=== PATIENT | male | born 1955 | race Caucasian/White ===

== ENCOUNTER 2017-12-30 23:42 | Emergency (ER) | payer OTHER ==
[2017-12-31 00:50] LABS: Absolute Monocytes 0.7 K/uL (0.1-1.3); Absolute Neutrophil 5.8 K/uL (1.8-8.0); Basophils % 0.9 % (0-1.3); Eosinophils % 1.2 % (0-4.4); Hematocrit 44.8 % (39.6-49.0); Lymphocytes % 22.9 % (15.3-44.8); MCH 30.2 pg (27.0-35.0); MCV 89.4 fL (80-100); MPV 8.4 fL (7.6-11.3); Monocytes % 8.4 % (3.3-12.3); RBC Red Blood Cell Count 5.01 M/uL (4.33-5.43)
[2017-12-31 00:54] LABS: Potassium 4.1 mEq/L (3.6-5.0)
[2017-12-31 01:00] LABS: Albumin 4.1 g/dL (3.2-5.5); Bilirubin Direct 0.1 mg/dL (0-0.2); Bilirubin Total 0.9 mg/dL (0.3-1.2); Protein, Total 6.3 g/dL (6.0-8.3)
[2017-12-31 01:09] LABS: Urine Bacteria <20 /HPF (NONE SEEN); Urine Mucus 1+ /HPF (NONE SEEN); Urine RBC 20-50 /HPF (NONE SEEN)
[2017-12-31 01:10] LABS: Urine Culture Reflex Order NOT NEEDED
[2017-12-31] MEDS ORDERED: ONDANSETRON 4 MG/2 ML VIAL ONE (01:10)
[2017-12-31] MEDS ORDERED: MORPHINE 4 MG/ML SYR ONE (01:11)
[2017-12-31] MEDS ORDERED: NA CHLORIDE 0.9% 1,000 ML ONE (01:11)
[2017-12-31 01:46] LABS: Urine Blood 2+ (NEG); Urine Glucose NEGATIVE (NEG); Urine Protein NEGATIVE (NEG); Urine Specific Gravity >1.030 (1.005-1.030); Urine pH 5.5 (5.0-7.0)
--- NOTE | 2017-12-31 02:30 | EDPHYS ---
Physician Documentation [facility] Name: Braulio Wright Age: 62 yrs Sex: Male : 1955 Arrival Date: 12/30/2017 Time: 23:48 Bed 2 Private MD: ED Physician Paresh Lundberg HPI: 12/31 01:00 This 62 yrs old Male presents to ER via Ambulatory with complaints of RT pm1 flank pain with vomiting. 01:00 The patient complains of pain in the right low back. The pain radiates to the right pm1 lower quadrant. Onset: The symptoms/episode began/occurred today. Modifying factors: The symptoms are alleviated by nothing. the symptoms are aggravated by nothing. Associated signs and symptoms: Pertinent positives: nausea, vomiting, Pertinent negatives: dysuria, fever. Severity of pain: in the emergency department the pain has improved. The patient has not experienced similar symptoms in the past. The patient has not recently seen a physician. Patient with right flank pain with nausea and vomiting. Right flank pain has improved but right lower quadrant pain present. Historical: - Allergies: 00:03 SHRIMP; bp - Home Meds: 00:03 valsartan-hydrochlorothiazide 320-25 mg oral tab [Active]; verapamil 240 mg Oral TbER bp [Active]; atorvastatin 40 mg oral tab [Active]; glipizide 5 mg Oral tab 1 tab 2 times per day [Active]; metformin 1,000 mg Oral tab 1 tab 2 times per day [Active]; - PMHx: 00:03 Hypertension; Diabetes - NIDDM; Cholelithiasis; bp - Immunization history:: Adult Immunizations. - Social history:: Smoking status: Patient/guardian denies using tobacco. - Ebola Screening: : Patient negative for fever greater than or equal to 101.5 degrees Fahrenheit, and additional compatible Ebola Virus Disease symptoms Patient denies exposure to infectious person Patient denies travel to an Ebola-affected area in the 21 days before illness onset No symptoms or risks identified at this time. ROS: 01:00 Constitutional: Negative for fever, chills, and weight loss, Eyes: Negative for injury, pm1 pain, redness, and discharge, ENT: Negative for injury, pain, and discharge, Neck: Negative for injury, pain, and swelling, Cardiovascular: Negative for chest pain, palpitations, and edema, Respiratory: Negative for shortness of breath, cough, wheezing, and pleuritic chest pain. 01:00 : Negative for injury, bleeding, discharge, and swelling, MS/Extremity: Negative for injury and deformity, Skin: Negative for injury, rash, and discoloration, Neuro: Negative for headache, weakness, numbness, tingling, and seizure. 01:00 Abdomen/GI: Positive for abdominal pain, nausea and vomiting, Negative for diarrhea, constipation. 01:00 Back: Positive for flank pain, on the right. Exam: 01:00 Constitutional: This is a well developed, well nourished patient who is awake, alert, pm1 and in no acute distress. Head/Face: Normocephalic, atraumatic. Eyes: Pupils equal round and reactive to light, extra-ocular motions intact. Lids and lashes normal. Conjunctiva and sclera are non-icteric and not injected. Cornea within normal limits. Periorbital areas with no swelling, redness, or edema. ENT: Nares patent. No nasal discharge, no septal abnormalities noted. Tympanic membranes are normal and external auditory canals are clear. Oropharynx with no redness, swelling, or masses, exudates, or evidence of obstruction, uvula midline. Mucous membranes moist. Neck: Trachea midline, no thyromegaly or masses palpated, and no cervical lymphadenopathy. Supple, full range of motion without nuchal rigidity, or vertebral point tenderness. No Meningismus. Chest/axilla: Normal chest wall appearance and motion. Nontender with no deformity. No lesions are appreciated. Cardiovascular: Regular rate and rhythm with a normal S1 and S2. No gallops, murmurs, or rubs. Normal PMI, no JVD. No pulse deficits. Respiratory: Lungs have equal breath sounds bilaterally, clear to auscultation and percussion. No rales, rhonchi or wheezes noted. No increased work of breathing, no retractions or nasal flaring. 01:00 Back: No spinal tenderness. No costovertebral tenderness. Full range of motion. Skin: Warm, dry with normal turgor. Normal color with no rashes, no lesions, and no evidence of cellulitis. MS/ Extremity: Pulses equal, no cyanosis. Neurovascular intact. Full, normal range of motion. 01:00 Abdomen/GI: Inspection: obese Bowel sounds: normal, Palpation: soft, mild abdominal tenderness, in the right lower quadrant, mass, is not appreciated, rebound tenderness, is not appreciated. 01:00 Neuro: Orientation: is normal, Motor: is normal, moves all fours, strength is 5/5 in all extremities. Vital Signs: 00:03 BP 165 / 96; Pulse 64; Resp 16; Temp 98; Pulse Ox 97% ; Weight 122.47 kg; Height 5 ft. bp 10 in. (177.80 cm); 00:30 BP 146 / 75; Pulse 57; Resp 16; Pulse Ox 97% ; bp 01:43 BP 142 / 77; Pulse 58; Resp 16; Pulse Ox 97% ; bp 02:45 BP 133 / 77; Pulse 55; Resp 16; Pulse Ox 98% ; bp 00:03 Body Mass Index 38.74 (122.47 kg, 177.80 cm) bp MDM: 00:45 Patient medically screened. pm1 02:28 Data reviewed: vital signs. Data interpreted: Pulse oximetry: on room air is 97 %. pm1 Interpretation: normal. Counseling: I had a detailed discussion with the patient and/or guardian regarding: the historical points, exam findings, and any diagnostic results supporting the discharge/admit diagnosis, lab results, radiology results, the need for outpatient follow up, to return to the emergency department if symptoms worsen or persist or if there are any questions or concerns that arise at home. 02:31 Special discussion: I discussed with the patient the need to follow-up with the pm1 PCP/specialist for the noted incidental finding on X-ray/CT scanning. 12/31 00:07 Order name: Amylase, Serum; Complete Time: 02:22 bp 12/31 00:07 Order name: Basic Metabolic Panel; Complete Time: 02:22 bp 12/31 00:07 Order name: CBC with Diff; Complete Time: 02:22 bp 12/31 00:07 Order name: Creatinine for Radiology; Complete Time: 02:22 bp 12/31 00:07 Order name: Hepatic Function; Complete Time: 02:22 bp 12/31 00:07 Order name: Lipase; Complete Time: 02:22 bp 12/31 00:07 Order name: Urine Microscopic Only; Complete Time: 02:22 bp 12/31 00:07 Order name: CT Stone Protocol bp 12/31 01:14 Order name: Urine Dipstick--Ancillary (enter results); Complete Time: 02:22 cc 02 00:07 Order name: IV Saline Lock; Complete Time: 00:17 bp 0602 00:07 Order name: Labs collected and sent; Complete Time: 00:17 bp 02 00:07 Order name: Urine Dipstick-Ancillary (obtain specimen); Complete Time: 00:45 bp Administered Medications: 01:41 Drug: morphine 4 mg Route: IVP; Site: right antecubital; bp 01:42 Follow up: Response: Pain is decreased bp 01:42 Drug: Zofran 4 mg Route: IVP; Site: right antecubital; bp 01:42 Follow up: Response: Pain is decreased bp 01:42 Drug: NS 0.9% 1000 ml Route: IV; Rate: 1000 ml; Site: right antecubital; bp 03:02 Follow up: IV Status: Completed infusion ao 02:56 Drug: TORadol 30 mg Route: IVP; Site: left antecubital; ao 02:57 Follow up: Response: Medication administered at discharge. ao 02:56 Drug: Cipro 500 mg Route: PO; ao 03:03 Follow up: Response: Medication administered at discharge. ao 02:56 Drug: Flomax 0.4 mg Route: PO; ao 03:03 Follow up: Response: Medication administered at discharge. ao Disposition: 12/31/17 02:30 Discharged to Home. Impression: Hydronephrosis with renal and ureteral calculous obstruction - Right. - Condition is Stable. - Discharge Instructions: Kidney Stones, Dietary Guidelines to Help Prevent Kidney Stones. - Prescriptions for Tylenol- Codeine #3 300-30 mg Oral Tablet - take 2 tablets by ORAL route every 6 hours As needed; 20 tablet. Zofran 4 mg Oral Tablet - take 1 tablet by ORAL route every 12 hours As needed; 20 tablet. Flomax 0.4 mg Oral Capsule, Sust. Release 24 hr - take 1 capsule by ORAL route once daily 1/2 hour following the same meal each day; 30 capsule. Cipro 500 mg Oral Tablet - take 1 tablet by ORAL route every 12 hours for 7 days; 14 tablet. - Medication Reconciliation Form, Thank You Letter, Antibiotic Education, Prescription Opioid Use form. - Follow up: Emergency Department; When: As needed; Reason: Worsening of condition. Follow up: Matthew Grey MD; When: 2 - 3 days; Reason: Recheck today's complaints, Continuance of care, Re-evaluation by your physician. - Problem is new. - Symptoms have improved. Addendum: 01/02/2018 06:51 Co-signature as Attending Physician, Paresh Lundberg MD I agree with the assessment and c novak plan of care. Signatures: Dispatcher [employer] [facility] Paresh Lundberg MD MD cha Ortiz, Alex, RN RN ao Zeyad Schwartz, ASSOCIATE PROFESSOR [employer]IATE PROFESSOR [employer] pm1 Charles Cabrera RN RN bp Corrections: (The following items were deleted from the chart) 12/31 01:22 00:24 Abdomen Pelvis W Con+CT.RAD.DEBORAHZ ordered. [facility] 02:31 02:30 12/31/2017 02:30 Discharged to Home. Impression: Hydronephrosis with renal and pm1 ureteral calculous obstruction - Right. Condition is Stable. Forms are Medication Reconciliation Form, Thank You Letter, Antibiotic Education, Prescription Opioid Use. Follow up: Emergency Department; When: As needed; Reason: Worsening of condition. Follow up: Private Physician; When: 2 - 3 days; Reason: Recheck today's complaints, Continuance of care, Re-evaluation by your physician. Problem is new. Symptoms have improved. pm1 03:04 02:31 12/31/2017 02:30 Discharged to Home. Impression: Hydronephrosis with renal and ao ureteral calculous obstruction - Right. Condition is Stable. Discharge Instructions: Kidney Stones, Dietary Guidelines to Help Prevent Kidney Stones. Prescriptions for Zofran 4 mg Oral Tablet - take 1 tablet by ORAL route every 12 hours As needed; 20 tablet, Flomax 0.4 mg Oral Capsule, Sust. Release 24 hr - take 1 capsule by ORAL route once daily 1/2 hour following the same meal each day; 30 capsule, Cipro 500 mg Oral Tablet - take 1 tablet by ORAL route every 12 hours for 7 days; 14 tablet, Tylenol-Codeine #3 300-30 mg Oral Tablet - take 2 tablets by ORAL route every 6 hours As needed; 20 tablet. and Forms are Medication Reconciliation Form, Thank You Letter, Antibiotic Education, Prescription Opioid Use. Follow up: Emergency Department; When: As needed; Reason: Worsening of condition. Follow up: Matthew Grey; When: 2 - 3 days; Reason: Recheck today's complaints, Continuance of care, Re-evaluation by your physician. Problem is new. Symptoms have improved. pm1
--- NOTE | 2017-12-31 02:30 | ER ---
Nurse's Notes [facility] Name: Braulio Wright Age: 62 yrs Sex: Male : 1955 Arrival Date: 12/30/2017 Time: 23:48 Bed 2 Private MD: Diagnosis: Hydronephrosis with renal and ureteral calculous obstruction-Right Presentation: 12/30 23:59 Presenting complaint: Patient states: I'VE BEEN HURTING ON MY RIGHT SIDE AND BACK AND bp I'VE THROWN UP A FEW TIMES. Transition of care: patient was not received from another setting of care. Onset of symptoms was December 30, 2017 at 17:30. Risk Assessment: Do you want to hurt yourself or someone else? Patient reports no desire to harm self or others. Initial Sepsis Screen: Does the patient meet any 2 criteria? No. Patient's initial sepsis screen is negative. Does the patient have a suspected source of infection? No. Patient's initial sepsis screen is negative. Care prior to arrival: None. 23:59 Method Of Arrival: Ambulatory bp 23:59 Acuity: MATILDE 3 bp Triage Assessment: 12/31 00:03 General: Appears in no apparent distress. uncomfortable, obese, Behavior is calm, bp cooperative, appropriate for age. Pain: Complains of pain in posterior aspect of right lateral abdomen and right lower quadrant. EENT: No deficits noted. Neuro: Level of Consciousness is awake, alert, obeys commands, Oriented to person, place, time, situation, Appropriate for age. Cardiovascular: No deficits noted. Respiratory: Airway is patent Respiratory effort is even, unlabored, Respiratory pattern is regular, symmetrical. GI: Reports lower abdominal pain, nausea, vomiting. : Reports pain in right flank(s). Derm: No deficits noted. Musculoskeletal: Circulation, motion, and sensation intact. Range of motion: intact in all extremities. Historical: - Allergies: 00:03 SHRIMP; bp - Home Meds: 00:03 valsartan-hydrochlorothiazide 320-25 mg oral tab [Active]; verapamil 240 mg Oral TbER bp [Active]; atorvastatin 40 mg oral tab [Active]; glipizide 5 mg Oral tab 1 tab 2 times per day [Active]; metformin 1,000 mg Oral tab 1 tab 2 times per day [Active]; - PMHx: 00:03 Hypertension; Diabetes - NIDDM; Cholelithiasis; bp - Immunization history:: Adult Immunizations. - Social history:: Smoking status: Patient/guardian denies using tobacco. - Ebola Screening: : Patient negative for fever greater than or equal to 101.5 degrees Fahrenheit, and additional compatible Ebola Virus Disease symptoms Patient denies exposure to infectious person Patient denies travel to an Ebola-affected area in the 21 days before illness onset No symptoms or risks identified at this time. Screenin:06 Abuse screen: Denies threats or abuse. Denies injuries from another. Nutritional bp screening: No deficits noted. Tuberculosis screening: No symptoms or risk factors identified. Fall Risk None identified. Assessment: 00:06 Reassessment: SEE TRIAGE NOTE. bp 00:41 Reassessment: CT PENDING, LAB SPECIMENS SENT AND RESULTS PENDING, VS STABLE ON MONITOR. bp 01:13 Reassessment: PT TO CT WITH [employer]. bp 01:41 Reassessment: PT RETURNED FROM CT. ALL CURRENT ORDERS COMPLETED. bp 03:01 Reassessment: PT D/C HOME AMBULATORY WITH FAMILY, DX WITH HYDRONEPHROSIS WITH RENAL AND bp URETERAL CALCULOUS. Vital Signs: 00:03 BP 165 / 96; Pulse 64; Resp 16; Temp 98; Pulse Ox 97% ; Weight 122.47 kg; Height 5 ft. bp 10 in. (177.80 cm); 00:30 BP 146 / 75; Pulse 57; Resp 16; Pulse Ox 97% ; bp 01:43 BP 142 / 77; Pulse 58; Resp 16; Pulse Ox 97% ; bp 02:45 BP 133 / 77; Pulse 55; Resp 16; Pulse Ox 98% ; bp 00:03 Body Mass Index 38.74 (122.47 kg, 177.80 cm) bp ED Course: 12/30 23:48 Patient arrived in ED. es 23:59 Charles Cabrera, RN is Primary Nurse. bp 12/31 00:00 Triage completed. bp 00:05 Arm band placed on. bp 00:06 Patient has correct armband on for positive identification. Bed in low position. Call bp light in reach. Side rails up X2. Adult w/ patient. 00:15 Zeyad Schwartz NP is PHCP. pm1 00:15 Paresh Lundberg MD is Attending Physician. pm1 00:18 Inserted saline lock: 20 gauge in right antecubital area, using aseptic technique. bp Blood collected. 01:[address] via wheelchair. kw1 01:17 CT completed. Patient tolerated procedure well. Patient moved back from CT. kw1 01:20 CT Stone Protocol In Process Unspecified. EDMS 02:31 Matthew Grey MD is Referral Physician. pm1 02:45 No provider procedures requiring assistance completed. IV discontinued, intact, bp bleeding controlled, No redness/swelling at site. Pressure dressing applied. Administered Medications: 01:41 Drug: morphine 4 mg Route: IVP; Site: right antecubital; bp 01:42 Follow up: Response: Pain is decreased bp 01:42 Drug: Zofran 4 mg Route: IVP; Site: right antecubital; bp 01:42 Follow up: Response: Pain is decreased bp 01:42 Drug: NS 0.9% 1000 ml Route: IV; Rate: 1000 ml; Site: right antecubital; bp 03:02 Follow up: IV Status: Completed infusion ao 02:56 Drug: TORadol 30 mg Route: IVP; Site: left antecubital; ao 02:57 Follow up: Response: Medication administered at discharge. ao 02:56 Drug: Cipro 500 mg Route: PO; ao 03:03 Follow up: Response: Medication administered at discharge. ao 02:56 Drug: Flomax 0.4 mg Route: PO; ao 03:03 Follow up: Response: Medication administered at discharge. ao Outcome: 02:30 Discharge ordered by MD. pm1 02:45 Discharged to home ambulatory, with family. bp 02:45 Condition: stable 02:45 Discharge instructions given to patient, Instructed on discharge instructions, follow up and referral plans. no drinking with medication, medication usage, Demonstrated understanding of instructions, follow-up care, medications, Prescriptions given X 4. 03:04 Patient left the ED. ao Signatures: Dispatcher [employer] EDND Licha Nieto Alex RN RN Zeyad Chapin, CEASAR MANAGER SCIENTIFIC pm1 Charles Cabrera RN RN Laine Schwarz kw1
[2017-12-31] MEDS ORDERED: TAMSULOSIN 0.4 MG SR CAP ONE (02:47)
[2017-12-31] MEDS ORDERED: CIPROFLOXACIN HCL 500 MG TAB ONE (02:47)
[2017-12-31] MEDS ORDERED: KETOROLAC 30 MG/ML INJ ONE (02:47)
--- NOTE | 2017-12-31 09:51 | RAD REPORT ---
EXAM DESCRIPTION: CT - Stone Protocol - 12/31/2017 3:25 am CLINICAL HISTORY: Right-sided back and flank pain A preliminary written report was provided at the time of the study, and the report was reviewed prio r to final dictation. COMPARISON: None. TECHNIQUE: Axial 5 mm thick images were obtained without oral or IV contrast. The [id number] span s the entirety of the system partially obscuring uppermost abdomen and lung bases. All CT scans are performed using dose optimization technique as appropriate and may include automated exposure control or mA/KV adjustment according to patient size. FINDINGS: Mild right-sided hydronephrosis is present secondary to a 3 millimeter calcification withi n the UVJ. There is stranding along the entire course of the right ureter. No additional obstructing or nonobstructing calculi seen. No left-sided hydronephrosis. Medial upper pole left kidney shows a 2 3 millimeter low-density exophytic mass most likely an incidental cyst. The superior margin there is an 8 millimeter low-density mass also likely a cyst. These are not fully characterized on noncontrast imaging. A 16 millimeter low-density mass is present in the anterior inferior right kidney also like ly a cyst. No suspicious renal masses. Isodense masses and pyelonephritis are not excluded on a stone protocol CT scan. Urinary bladder is contracted limiting detail. Liver shows fatty infiltration pattern. No focal liver lesion. The spleen and pancreas show no suspic ious findings. No gallbladder or biliary tree abnormality identified. Gallstones can be occult. No ri ght adrenal abnormality. 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 No suspicious bowel findings. Prostate gland and seminal vesicles normal range. Phleboliths are prese nt. No hernia, mass or bulky lymphadenopathy noted. No free air, free fluid or inflammatory stranding. No significant bony abnormality. IMPRESSION: Mild right-sided hydronephrosis secondary to a 3 millimeter calcification within the UVJ . Additional nonacute findings detailed in the body of the report. Isodense masses and pyelonephritis are not excluded on stone protocol technique.
== END 2017-12-31 03:04 | disposition home or self-care (01) ==
LOC: ER 23:42
DX: N13.2 Hydronephrosis with renal and ureteral calculous obstruction (principal); I10 Essential (primary) hypertension; E11.9 Type 2 diabetes mellitus without complications; Z91.013 Allergy to seafood
CPT/HCPCS: 36415; 74176; 76377; 80048; 80076; 81003; 81015; 82150; 83690; 85025; 99284; J2405; J7030